=== PATIENT | male | born 1980 | race Caucasian/White ===

== ENCOUNTER 2017-09-09 09:41 | Emergency (ER) | payer BC ==
[~2017-09-09] VITALS: Ht 188 cm; Wt 128.0 kg
[2017-09-09 09:43] VITALS: BP 148/90
[2017-09-09] MEDS ORDERED: LIDOCAINE 1%, 10ML ONE (10:24)
[2017-09-09] MEDS ORDERED: LIDOCAINE 1%, 20ML SQ ONE (10:30)
== END 2017-09-09 11:46 | disposition home or self-care (01) ==
LOC: ED 11:39
DX: L05.01 Pilonidal cyst with abscess (principal)
CPT/HCPCS: 10080; 82962; 99284

== ENCOUNTER 2018-10-12 10:08 | Emergency (ER) | payer BC ==
[~2018-10-12] VITALS: Ht 188 cm; Wt 127.0 kg
[2018-10-12 10:18] VITALS: BP 132/81
--- NOTE | 2018-10-12 10:36 | NUR ---
LATE ENTRY FOR 1020 PT TO ALE
--- NOTE | 2018-10-12 11:05 | NUR ---
PT AMBULATORY TO E FROM LOBBY WITH STEADY GAIT. NAD NOTED. RESP REGULAR AND UNLABORED. KRISTIN HENDERSON AT BEDSIDE FOR EVALUATION. CALL LIGHT IN REACH. FALL PRECAUTIONS IN PLACE. SIDE RAILS UPX2. A&OX4.
[2018-10-12] MEDS ORDERED: LIDOCAINE-MPF 1%, 5ML ONE (11:07)
--- NOTE | 2018-10-12 11:10 | NUR ---
I&D SET UP PER KRISTIN HENDERSON
--- NOTE | 2018-10-12 11:26 | NUR ---
KRISTIN HENDERSON AT BEDSIDE FOR I&D
[2018-10-12] MEDS ORDERED: LIDOCAINE-MPF 1%, 5ML INFIL ONE (11:30)
== END 2018-10-12 11:44 | disposition home or self-care (01) ==
LOC: ED 11:38
DX: L05.01 Pilonidal cyst with abscess (principal)
CPT/HCPCS: 10080; 99284

== ENCOUNTER 2018-10-14 10:14 | Emergency (ER) | payer BC ==
[~2018-10-14] VITALS: Ht 188 cm; Wt 126.0 kg
[2018-10-14] MEDS ORDERED: BACITRACIN ZINC OINT 500U/GM, 0.9 GM ONE (10:44)
--- NOTE | 2018-10-14 11:00 | NUR ---
Patient/Caregiver given discharge instructions and they have confirmed that they understand the instructions. Patient ambulatory with steady gait. Pt. has his RX in his hand.
[2018-10-14 11:01] VITALS: BP 125/82
== END 2018-10-14 11:03 | disposition home or self-care (01) ==
LOC: ED 10:52
DX: L05.01 Pilonidal cyst with abscess (principal); F17.200 Nicotine dependence, unspecified, uncomplicated
CPT/HCPCS: 99283